=== PATIENT | female | born 1995 | race Caucasian/White ===

== ENCOUNTER 2019-05-27 08:31 | Inpatient (IN) | payer MEDICAID ==
[~2019-05-27] VITALS: Ht 154.9 cm; Wt 77.1 kg
[2019-05-27] MEDS: LACTATED RINGERS 1,000 ML IV SCH ×3 (10:10→18:42)
[2019-05-27] MEDS ORDERED: PNV1TABL76 PO (10:28)
[2019-05-27] MEDS ORDERED: CARBOPROST TROMETHAMINE 250 MCG/ML AMPUL IM PRN (10:30)
[2019-05-27] MEDS ORDERED: MISOPROSTOL 200MCG TABLET VG SCH (10:30)
[2019-05-27] MEDS ORDERED: NALOXONE HCL 0.4 MG/ML 1ML VIAL IM PRN (10:30)
[2019-05-27] MEDS ORDERED: LIDOCAINE HCL 1% 20ML VIAL (Pyxis) INJ INFIL SCH (10:30)
[2019-05-27] MEDS ORDERED: METHYLERGONOVINE MALEATE 0.2 MG/ML IM PRN (10:30)
[2019-05-27 10:57] LABS: CLARITY URINE CLEAR (CLEAR); COLOR URINE YELLOW (YELLOW); KETONES URINE NEGATIVE (NEGATIVE); LEUKOCYTE ESTERASE URINE TRACE (NEGATIVE); NITRITE URINE NEGATIVE (NEGATIVE); OCCULT BLOOD URINE NEGATIVE (NEGATIVE); PROTEIN URINE TRACE (NEGATIVE); SPECIFIC GRAVITY URINE 1.022 (1.005-1.030); UROBILINOGEN URINE 0.2 E.U./dL (0.2-1.0)
[2019-05-27 11:01] LABS: BASOPHILS % 0.2 % (0.0-2.0); EOSINOPHILS % 0.5 % (0.0-5.0); HEMATOCRIT. 35.2 % (36.0-48.0); HEMOGLOBIN. 11.7 g/dL (12.0-16.0); LYMPHOCYTES % 28.4 % (20.0-50.0); MEAN CORPUSCULAR HEMOGLOBIN 28.3 pg (28.0-32.0); MEAN CORPUSCULAR VOLUME 85.5 fL (81.0-99.0); MEAN PLATELET VOLUME 10.5 fl (7.4-10.4); MONOCYTES % 5.7 % (2.0-8.0); NEUTROPHILS % 65.2 % (40.0-76.0); PLATELET 297 x1000/uL (130-400); RED BLOOD CELL COUNT 4.12 mill/uL (4.2-5.4); RED CELL DISTRIBUTION WIDTH 15.7 % (11.6-14.6)
[2019-05-27 11:03] LABS: INR 0.9; PARTIAL THROMBOPLASTIN TIME 28.3 sec (23.4-31.0); PROTHROMBIN TIME 9.8 sec (9.6-11.0)
[2019-05-27] MEDS ORDERED: DEXT 5%/LACTATED RINGERS 1,000 ML IV SCH (11:17)
[2019-05-27 11:35] LABS: *AMPHETAMINES SCREEN URINE NEGATIVE (NEGATIVE); *BARBITURATES SCREEN URINE NEGATIVE (NEGATIVE); *BENZODIAZEPINES SCREEN URINE NEGATIVE (NEGATIVE); *COCAINE SCREEN URINE NEGATIVE (NEGATIVE)
[2019-05-27 11:36] LABS: CANNABINOID URINE SCREEN NEGATIVE (NEGATIVE); METHADONE URINE SCREEN NEGATIVE (NEGATIVE); OPIATES URINE SCREEN NEGATIVE (NEGATIVE); PHENCYCLIDINE URINE SCREEN NEGATIVE (NEGATIVE)
[2019-05-27 11:39] LABS: HEPATITIS B SURFACE ANTIGEN NEGATIVE
[2019-05-27] MEDS: DEXT 5%/LR + PITOCIN 20UNITS/L 1,000 ML IV SCH ×2 (11:52→20:09)
[2019-05-27] MEDS: BUTORPHANOL TARTRATE 2 MG/ML VIAL IV PRN ×2 (17:28→19:18)
[2019-05-27] MEDS ORDERED: ROPIVACAINE HCL 2MG/ML (0.2%) 200ML BOTTLE IR ONE (18:45)
[2019-05-27] MEDS ORDERED: ROPIVACAINE HCL/PF EPIDURAL 200 ML EPI NR (18:51)
[2019-05-27] MEDS ORDERED: FENTANYL CITRATE/PF 50MCG/ML 2ML VIAL ONE (19:01)
[2019-05-27] MEDS ORDERED: BUPIVACAINE HCL/PF 0.25% (2.5MG/ML) 10ML ONE (19:02)
[2019-05-27] MEDS ORDERED: DEXT 5%/LR + PITOCIN 20UNITS/L 1,000 ML IV SCH (20:04)
[2019-05-27] MEDS ORDERED: ACETAMINOPHEN WITH CODEINE 300/30MG TABLET PO PRN ×2 (20:15)
[2019-05-27] MEDS ORDERED: LANOLIN OINT 7GM TUBE TOP PRN (20:15)
[2019-05-27] MEDS ORDERED: GLYCERIN/WITCH HAZEL LEAF MEDICATED PAD TOP PRN (20:15)
[2019-05-27] MEDS ORDERED: RHO(D) IMMUNE GLOBULIN 300 MCG/SYR IM PRN (20:15)
[2019-05-27] MEDS ORDERED: IBUPROFEN 400MG TABLET PO PRN (20:15)
[2019-05-27] MEDS ORDERED: DIPHENHYDRAMINE 25MG CAPSULE PO PRN (20:15)
[2019-05-27] MEDS ORDERED: BENZOCAINE/LANOLIN/ALOE VERA SPRAY TOP PRN (20:15)
[2019-05-27] MEDS ORDERED: BISACODYL 10MG SUPP PR PRN (20:15)
[2019-05-27] MEDS ORDERED: HEMORRHOIDAL SUPP PR PRN (20:15)
[2019-05-27] MEDS ORDERED: DOCUSATE SODIUM 100MG CAPSULE PO SCH (21:00)
[2019-05-27 21:45] VITALS: BP 112/82
[2019-05-27 22:15] VITALS: BP 110/66
[2019-05-27 22:45] VITALS: BP 101/53
[2019-05-28 04:20] VITALS: BP 97/53
[2019-05-28 07:18] LABS: BASOPHILS % 0.4 % (0.0-2.0); EOSINOPHILS % 0.3 % (0.0-5.0); HEMOGLOBIN. 10.4 g/dL (12.0-16.0); MEAN CORPUSCULAR HEMOGLOBIN 28.4 pg (28.0-32.0); MEAN CORPUSCULAR VOLUME 84.9 fL (81.0-99.0); MEAN PLATELET VOLUME 10.3 fl (7.4-10.4); MONOCYTES % 5.2 % (2.0-8.0); NEUTROPHILS % 77.1 % (40.0-76.0); PLATELET 226 x1000/uL (130-400); RED BLOOD CELL COUNT 3.65 mill/uL (4.2-5.4); RED CELL DISTRIBUTION WIDTH 15.8 % (11.6-14.6)
[2019-05-28] MEDS: MAGNESIUM/ALUMINUM HYDROXIDE/SIMETHICONE 30ML UDC PO SCH ×5 (07:30→21:18)
[2019-05-28 08:00] VITALS: BP 115/72
[2019-05-28] MEDS: SIMETHICONE 80MG TABLET CHEW PO SCH ×5 (08:00→21:18)
[2019-05-28] MEDS: FERROUS SULFATE 325MG TABLET PO SCH ×3 (08:49→17:30)
[2019-05-28] MEDS ORDERED: PRENATAL VIT/FE FUMARATE/FA TABLET PO SCH (09:00)
[2019-05-28 14:56] VITALS: BP 103/50
[2019-05-28 20:15] VITALS: BP 98/56
[2019-05-29] VITALS: BP 101/58
[2019-05-29 08:00] VITALS: BP 110/62
[2019-05-29] MEDS ORDERED: TETANUS, DIPHTHERIA, PERTUSSIS VAC/PF 0.5ML (>7YR OLD) IM ONE (09:00)
[2019-05-29 14:00] VITALS: BP 105/60
== END 2019-05-29 15:00 | disposition home or self-care (01) | DRG 560 ==
LOC: OBSVTOIN 08:31 → 8 EST LDRP 08:31 → 8EST 22:21
PROVIDERS: ADMIT Obstetrics & Gynecology; ATTEND Obstetrics & Gynecology
PROC: 10E0XZZ Delivery of Products of Conception, External Approach (ICD-10-PCS; principal; 2019-05-27)
PROC: 00HU33Z Insertion of Infusion Device into Spinal Canal, Percutaneous Approach (ICD-10-PCS; 2019-05-27)
PROC: 3E0R3BZ Introduction of Anesthetic Agent into Spinal Canal, Percutaneous Approach (ICD-10-PCS; 2019-05-27)
DX: O69.81X0 Labor and delivery complicated by cord around neck, without compression, not applicable or unspecified (principal); Z37.0 Single live birth; Z3A.39 39 weeks gestation of pregnancy
CPT/HCPCS: 36415; 80305; 81003; 85025; 86592; 86703; 86762; 86850; 86900; 87340; 90715; G0378; J0595; J2590; J2795; J3010; J3490; J7120; J7121; A4315

== ENCOUNTER 2020-05-10 14:12 | Emergency (ER) | payer MEDICAID, OTHER ==
[~2020-05-10] VITALS: Ht 162.6 cm; Wt 60.0 kg
[2020-05-10 14:18] VITALS: BP 115/83
[2020-05-10 16:18] LABS: BASOPHILS % 0.6 % (0.0-2.0); EOSINOPHILS % 1.1 % (0.0-5.0); HEMATOCRIT. 42.5 % (36.0-48.0); LYMPHOCYTES % 35.7 % (20.0-50.0); MEAN CORPUSCULAR HEMOGLOBIN 29.3 pg (28.0-32.0); MEAN CORPUSCULAR VOLUME 88.9 fL (81.0-99.0); MEAN PLATELET VOLUME 8.3 fl (7.4-10.4); MONOCYTES % 3.8 % (2.0-8.0); NEUTROPHILS % 58.8 % (40.0-76.0); PLATELET 305 x1000/uL (130-400); RED BLOOD CELL COUNT 4.79 mill/uL (4.2-5.4); RED CELL DISTRIBUTION WIDTH 14.8 % (11.6-14.6)
[2020-05-10 16:26] LABS: CHLORIDE 109 mEq/L (98-107)
[2020-05-10 16:34] LABS: ETHANOL BLOOD 73 mg/dL
[2020-05-10 16:35] LABS: HCG SCREEN NEGATIVE
== END 2020-05-10 17:08 | disposition left against medical advice (07) ==
LOC: ER 14:12
DX: Z53.21 Procedure and treatment not carried out due to patient leaving prior to being seen by health care provider (principal); F10.129 Alcohol abuse with intoxication, unspecified; Y90.3 Blood alcohol level of 60-79 mg/100 ml
CPT/HCPCS: 36415; 80053; 80320; 84703; 85025; G0480

== ENCOUNTER 2020-09-17 07:49 | Emergency (ER) | payer MEDICAID, OTHER ==
[~2020-09-17] VITALS: Ht 154.9 cm; Wt 31.0 kg
[2020-09-17] MEDS ORDERED: LIDOCAINE HCL/EPINEPHRINE 1%-EPI 1:100,000 10 ML VIAL IJ ONE (09:15)
[2020-09-17] MEDS ORDERED: CEPH500C2 MT (09:51)
[2020-09-17] MEDS ORDERED: SULF1TAB48 MT (09:51)
[2020-09-17 10:02] VITALS: BP 112/68
== END 2020-09-17 10:02 | disposition home or self-care (01) ==
LOC: ER 07:49
DX: L02.211 Cutaneous abscess of abdominal wall (principal)
CPT/HCPCS: 10060; 99284; J3490